=== PATIENT | male | born 1980 | race Caucasian/White ===

== ENCOUNTER 2021-10-31 11:32 | Emergency (ER) | payer BC ==
[2021-10-31 12:09] LABS: Hemoglobin 15.2 g/dL (13.5-17.5); MDiff Complete? YES; Mean Corpuscular HGB CONC 32.3 g/dL (32.0-36.0); Mean Corpuscular Hemoglobin 30.2 pg (27.0-33.0); Mean Corpuscular Volume 93.4 fl (81.2-95.1); Mean Platelet Volume 9.1 fl (7.4-10.4); Platelet Count 256 10x3/uL (150-450); RBC Distribution Width 12.7 % (11.5-14.5); Red Blood Cell (RBC) Count 5.03 10x6/uL (4.32-5.72); White Blood Cell (WBC) Count 5.4 10x3/uL (3.5-10.5)
[2021-10-31 12:23] LABS: ALT (SGPT) 30 U/L (8-55); AST (SGOT) 25 U/L (5-34); Alkaline Phosphatase 70 U/L (40-110); Anion Gap 15 mmol/L (10-20); BUN (Urea Nitrogen) 17 mg/dL (8.9-20.6); Bilirubin, Total 0.6 mg/dL (0.2-1.2); Calc. Creatinine Clearance 0 mL/min (70-130); Calcium 8.7 mg/dL (7.8-10.44); Carbon Dioxide 21 mmol/L (22-29); Chloride 103 mmol/L (98-107); Globulin 3.2 g/dL (2.4-3.5); Glucose 107 mg/dL (70-105); Lipase 16 U/L (8-78); Potassium 4.1 mmol/L (3.5-5.1); Protein, Total 7.2 g/dL (6.0-8.3); Sodium 135 mmol/L (136-145)
[2021-10-31] MEDS ORDERED: Ketorolac Tromethamine 30 MG/ML VIAL ONE (12:25)
[2021-10-31 12:39] LABS: Lymphocytes 23 % (21-51); Monocytes 18 % (0-10); Neutrophil 59 % (42-75)
[2021-10-31 12:41] LABS: Platelet Morphology Comment Appears Adequate; RBC Morphology Normal
[2021-10-31 14:03] LABS: SARS-CoV-2 NAA Rapid Test DETECTED (NotDetected)
== END 2021-10-31 15:04 | disposition home or self-care (01) ==
LOC: CSHERS 11:32
DX: U07.1 COVID-19 (principal)
CPT/HCPCS: 0240U; 36415; 71045; 80053; 82550; 83605; 83690; 84484; 85025; 93005; 96372; J1885